=== PATIENT | male | born 1990 | race Caucasian/White ===

== ENCOUNTER 2019-03-23 09:38 | Outpatient (REF) | payer BC, SELFPAY ==
[2019-03-23 11:58] LABS: Anion Gap 7.3 mmol/L (3-11); BUN 7 mg/dL (7-18); CO2 31.7 mmol/L (21.0-32.0); CREATININE 0.81 mg/dL (0.70-1.30); Calcium 9.6 mg/dL (8.5-10.1); Calculated LDL 105 mg/dL (<100); Chloride 103 mmol/L (98-107); Cholesterol 167 mg/dL (<200); Glucose 83 mg/dL (74-106); HDL Cholesterol 50 mg/dL (40-60); Potassium 4.5 mmol/L (3.5-5.1); Sodium 142 mmol/L (136-145); Triglyceride 60 mg/dL (<150)
[2019-03-24 10:33] LABS: Syphilis Serology (RPR) Negative (Negative)
[2019-03-24 11:45] LABS: Hepatitis C Ab w Rflx HCV PCR Negative (Negative)
[2019-03-24 11:48] LABS: HIV-1/2 Ag & Ab Screen Negative (Negative)
[2019-03-24 16:17] LABS: Chlamydia Result Negative (Negative); GC Result Negative (Negative)
== END 2019-03-23 09:58 ==
LOC: NCHCN 09:38
PROVIDERS: PCP Specialist/Technologist Athletic Trainer; Visit Provider Specialist/Technologist Athletic Trainer
DX: Z00.00 Encounter for general adult medical examination without abnormal findings (principal); Z11.59 Encounter for screening for other viral diseases; Z13.220 Encounter for screening for lipoid disorders; Z11.4 Encounter for screening for human immunodeficiency virus [HIV]; Z11.3 Encounter for screening for infections with a predominantly sexual mode of transmission; F17.200 Nicotine dependence, unspecified, uncomplicated
CPT/HCPCS: 80048; 80061; 86803; 87389; 87491; 87591; 86592

== ENCOUNTER 2020-08-28 19:49 | Outpatient (REF) | payer BC, SELFPAY ==
[2020-08-30 10:02] LABS: HIV-1/2 Ag & Ab Screen Negative (Negative)
[2020-08-30 10:21] LABS: Hepatitis C Ab w Rflx HCV PCR Negative (Negative)
[2020-08-30 10:28] LABS: Hep A Total Ab w Rflx IgM Negative (Negative)
[2020-08-30 11:01] LABS: Syphilis Serology (RPR) Negative (Negative)
[2020-08-30 15:04] LABS: Chlamydia Result Negative (Negative); GC Result Negative (Negative)
== END 2020-08-28 19:50 | disposition home or self-care (01) ==
LOC: NCHCN 19:49
PROVIDERS: PCP Specialist/Technologist Athletic Trainer; Visit Provider Nurse Practitioner Family
DX: Z11.3 Encounter for screening for infections with a predominantly sexual mode of transmission (principal)
CPT/HCPCS: 86709; 86803; 87389; 87491; 87591; 86592

== ENCOUNTER 2021-11-20 16:39 | Outpatient (REF) | payer BC, SELFPAY ==
[2021-11-22 15:21] LABS: Chlamydia Result Negative (Negative); GC Result Negative (Negative)
== END 2021-11-20 16:40 | disposition home or self-care (01) ==
LOC: NCHCN 16:39
PROVIDERS: PCP Specialist/Technologist Athletic Trainer; Visit Provider Nurse Practitioner Family
DX: Z11.3 Encounter for screening for infections with a predominantly sexual mode of transmission (principal)
CPT/HCPCS: 87491; 87591